=== PATIENT | female | born 2000 | race Caucasian/White ===

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

== ENCOUNTER → 2019-10-05 | Outpatient (CLI) | payer OTHER | LOC: COL.RAD 10-01 13:15 | DX: S39.012D Strain of muscle, fascia and tendon of lower back, subsequent encounter (principal); M51.27 Other intervertebral disc displacement, lumbosacral region; M48.07 Spinal stenosis, lumbosacral region ==

== ENCOUNTER 2019-10-08 08:30 | Outpatient (RCR) | payer OTHER | END 2019-11-09 | disposition home or self-care (01) | LOC: WSOH | DX: S39.012D Strain of muscle, fascia and tendon of lower back, subsequent encounter (principal); Z98.890 Other specified postprocedural states; Y99.0 Civilian activity done for income or pay ==